=== PATIENT | male | born 1955 | race Caucasian/White ===

== ENCOUNTER 2017-11-10 10:40 | Outpatient (CLI) | payer OTHER | END 2017-11-10 10:41 | disposition home or self-care (01) | LOC: BICRAD 10:40 | PROVIDERS: ATTEND Family Medicine | DX: I48.2 Chronic atrial fibrillation (principal); I51.7 Cardiomegaly | CPT/HCPCS: 71046 ==

== ENCOUNTER 2017-12-11 22:23 | Inpatient (IN) | payer MEDICAID, OTHER ==
[2017-12-11] MEDS ORDERED: Albuterol Sulfate 2.5 mg/3 ml Neb ONE (22:51)
[2017-12-11 23:13] LABS: pH, Arterial 7.49 (7.35-7.45)
[2017-12-11] MEDS ORDERED: Furosemide 40 MG/4 ML VIAL ONE (23:13)
[2017-12-11] MEDS ORDERED: Dexamethasone 10 MG/ML VIAL ONE (23:13)
[2017-12-11 23:14] LABS: Actual Bicarbonate (HCO3a) 29.3 mEq/L (22-26); Base Excess (BEa) 5.5 mEq/L (0 (+/-) 2.5); CO2 Tension 39.3 mmHg (35.0-45.0); Carboxyhemoglobin (COHb) 2.1 gm% (0.0-3.0); Hematocrit-ABG 25.7 % (42.0-52.0); Hemoglobin (Hb) 5.9 g/dL (14.0-18.0); O2 Tension (PaO2) 69.9 mmHg (80.0-100.0)
[2017-12-11 23:15] LABS: Analyzer IN Cardio ER; Calcium, Ionized 1.1 mmol/L (1.12-1.30); Potassium - ABG Lab 3.3 mmol/L (3.70-5.30); Puncture Site RRA
[2017-12-11] MEDS ORDERED: Magnesium 2 GM/NS 0.9% 50 ML 2 GM in Premix Bag 1 BAG IVPB SCH (23:15)
[2017-12-11 23:16] LABS: ALV-art Gradient 166.175 (0-20)
--- NOTE | 2017-12-11 23:17 | RAD ---
PORTABLE AP CHEST X-RAY: 12/11/2017 HISTORY: Dyspnea. FINDINGS: The cardiac silhouette is magnified by projection. The pulmonary vasculature is within normal limits . The lungs are clear. The osseous structures appear intact. IMPRESSION: No acute cardiopulmonary process. POS: SUSHMAH
[2017-12-11 23:27] LABS: #Basophils 0.1 thou/uL (0.0-0.2); #Eosinphils 0.5 thou/uL (0.0-0.7); #Lymphocytes 1.5 thou/uL (1.20-3.40); #Monocytes 1.3 thou/uL (0.11-0.59); #Neutrophils 13.9 thou/uL (1.40-6.50); %Basophils 0.5 % (0.0-1.0); %Lymphocytes 8.8 % (21.0-51.0); %Monocytes 7.6 % (0.0-10.0); %Neutrophils 80.1 % (42.0-75.0); Hemoglobin 6.4 g/dL (14.0-18.0); Mean Corpuscular HGB CONC 30.5 g/dL (32.0-36.0); Mean Corpuscular Hemoglobin 23.3 pg (27.0-31.0); Mean Corpuscular Volume 76.4 fl (80.0-94.0); Mean Platelet Volume 7.1 fL (7.4-10.4); Platelet Count 747 thou/uL (130-400); RBC Distribution Width 20.8 % (11.5-14.5); Red Blood Cell (RBC) Count 2.73 mill/uL (4.70-6.10); White Blood Cell (WBC) Count 17.3 thou/uL (4.8-10.8)
[2017-12-11 23:39] LABS: ALT (SGPT) 24 U/L (8-55); AST (SGOT) 19 U/L (5-34); Albumin 3.7 g/dL (3.4-4.8); Alkaline Phosphatase 116 U/L (40-150); Anion Gap 14 mmol/L (10-20); BUN (Urea Nitrogen) 24 mg/dL (8.4-25.7); Bilirubin, Total 0.3 mg/dL (0.2-1.2); CK (CPK) 54 U/L (30-200); Calc. Creatinine Clearance 90 mL/min (70-130); Carbon Dioxide 28 mmol/L (23-31); Chloride 94 mmol/L (98-107); Estimated GFR-MDRD 55; Globulin 2.9 g/dL (2.4-3.5); Glucose 121 mg/dL (80-115); Lipase 52 U/L (8-78); Potassium 3.7 mmol/L (3.5-5.1); Protein, Total 6.6 g/dL (5.8-8.1); Sodium 132 mmol/L (136-145)
[2017-12-11 23:43] LABS: Troponin I 0.012 ng/mL (< 0.028)
[2017-12-11 23:44] LABS: Bilirubin Negative (Negative); Blood, Urine Negative (Negative); Clarity CLEAR (Clear); Glucose, Urine (Dipstick) Negative (Negative); Leukocyte Small (Negative); Nitrite Negative (Negative); Protein, Urine (Dipstick) Negative (Neg-Trace); Specific Gravity, Urine 1.022 (1.002-1.036); Urobilinogen 0.2 mg/dL (0.2-1.0); pH, Urine 5.5 (5.0-9.0)
[2017-12-11 23:48] LABS: Bacteria/HPF None Seen HPF (None Seen); Hyaline Casts/LPF 0-3 HYALINE CAST LPF (0-3 Hyaline); Pathc Cast-AUWi Flag 0.14 (0-2.49); RBC/HPF 0-3 HPF (0-3); Squamous Epithelial 0-3 HPF (0-3)
[2017-12-12] MEDS ORDERED: Ondansetron ODT 4 MG TAB SL PRN (02:00)
[2017-12-12] MEDS ORDERED: Ondansetron PF 4 MG/2 ML Vial IVP PRN (02:00)
[2017-12-12 02:34] VITALS: BMI 34.6
[2017-12-12 02:56] LABS: Troponin I 0.011 ng/mL (< 0.028)
[2017-12-12 05:29] LABS: #Basophils 0.1 thou/uL (0.0-0.2); #Eosinphils 0.2 thou/uL (0.0-0.7); #Lymphocytes 0.8 thou/uL (1.20-3.40); #Monocytes 0.6 thou/uL (0.11-0.59); #Neutrophils 16.8 thou/uL (1.40-6.50); %Basophils 0.3 % (0.0-1.0); %Lymphocytes 4.3 % (21.0-51.0); %Monocytes 3.1 % (0.0-10.0); %Neutrophils 91.4 % (42.0-75.0); Hemoglobin 7.1 g/dL (14.0-18.0); Mean Corpuscular HGB CONC 31.1 g/dL (32.0-36.0); Mean Corpuscular Hemoglobin 24.8 pg (27.0-31.0); Mean Corpuscular Volume 79.9 fl (80.0-94.0); Mean Platelet Volume 7.6 fL (7.4-10.4); Platelet Count 666 thou/uL (130-400); RBC Distribution Width 20.6 % (11.5-14.5); Red Blood Cell (RBC) Count 2.85 mill/uL (4.70-6.10); White Blood Cell (WBC) Count 18.4 thou/uL (4.8-10.8)
[2017-12-12 05:37] LABS: Anion Gap 18 mmol/L (10-20); BUN (Urea Nitrogen) 24 mg/dL (8.4-25.7); Calc. Creatinine Clearance 95 mL/min (70-130); Calcium 8.8 mg/dL (7.8-10.44); Carbon Dioxide 26 mmol/L (23-31); Chloride 93 mmol/L (98-107); Estimated GFR-MDRD 55; Glucose 187 mg/dL (80-115); Potassium 3.6 mmol/L (3.5-5.1); Sodium 133 mmol/L (136-145)
[2017-12-12 05:43] LABS: Troponin I Less than 0.010 ng/mL (< 0.028)
[2017-12-12] MEDS ORDERED: Morphine 4 MG/ML VIAL SLOW IVP PRN (05:48)
[2017-12-12] MEDS ORDERED: Acetaminophen 325 MG TAB PO PRN (05:49)
[2017-12-12] MEDS ORDERED: Furosemide 20 MG/2 ML VIAL SLOW IVP SCH (06:00)
[2017-12-12] MEDS ORDERED: Ferrous Sulfate 325 MG TAB PO SCH (09:00)
[2017-12-12] MEDS ORDERED: Famotidine/PF 20 mg/2ml Vial SLOW IVP SCH (09:00)
[2017-12-12] MEDS ORDERED: Dexamethasone 4 mg/ml Vial SLOW IVP SCH (09:00)
[2017-12-12] MEDS ORDERED: DILTIAZEM HCL 240 MG PO SCH (09:00)
[2017-12-12] MEDS ORDERED: Aspirin 325 MG TAB PO SCH (09:00)
[2017-12-12] MEDS ORDERED: Non-Formulary Item 1 EACH (Ferrous Sulfate [Ferrous Sulfate] 325 MG) PO SCH (09:00)
--- NOTE | 2017-12-12 09:21 | HP ---
HISTORY OF PRESENT ILLNESS: This is a 62-year-old white male with COPD and CHF who presents with tereso rtness of breath. The patient has a long history of tobacco use leading to chronic obstructive pulmo nary disease as well as cardiac issues. He has had multiple admissions for congestive heart failure. He has been a longtime patient of [facility] in [place]. He lives in [place]. Recently his ins urance changed and [facility] no longer takes his insurance. He recently came to see me 1 month ago because I took his insurance; however, no specialist in town takes his insurance. He presently is scheduled for a Cardiology evaluation in [place]. The patient is in [place] due to his da ughter being here and wanting him to move here. However, the patient wants to live in [place]. The p atient states he has never had a cardiac catheterization. He has had multiple hospital admissions. Recently he was hospitalized at [facility] weeks ago for 5 days. He was seen there for a GI b leed. He had an EGD and colonoscopy which revealed only ulcers in his stomach. He has never had lexie ght red bleeding. He was noted to have a low hemoglobin and received multiple units of packed red bl ood cells. He presents to [facility] last night because of increasing shortness of breath and wea kness, unable to walk more than a few steps. He did not have any chest pain. Since being admitted h e states that the swelling that has been in his hands and feet have gone down. The swelling in his h ands is nearly resolved, but his legs are still quite swollen. He has had no further chest pain. Hi s breathing has improved. He is being admitted for further evaluation. He continues to take aspirin 81 and Xarelto 20 daily due to his atrial fibrillation. PAST MEDICAL HISTORY: 1. Congestive heart failure with ejection fraction of 45-49% noted in 10/2017. 2. Atrial fibrillation. 3. Testicular cancer 2005. 4. Hypertension 5. Hyperlipidemia. 6. Chronic COPD. PAST SURGICAL HISTORY: Include orchiectomy in 2005. FAMILY HISTORY: Father with diabetes, hypertension. Mother with hypertension, stroke. Siblings wit h diabetes. Grandparents have all . SOCIAL HISTORY: The patient has a 40-year tobacco history, quit in 2008. Drinks occasional alcohol and coffee. 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 He is divor yoly. He has 3 daughters and 2 grandkids. MEDICATIONS: Zyrtec 10 mg daily, iron 325 daily, KCl 10 daily, Lasix 40 b.i.d., Lipitor 10 mg daily, aspirin 81 mg daily, Protonix 40 daily, diltiazem 240 mg daily. ALLERGIES: AMOXICILLIN. PHYSICAL EXAMINATION: VITAL SIGNS: Temperature 98.8, pulse 124, respirations 18, pulse ox 95, blood pressure 106/73. GENERAL: The patient is eating breakfast, appears in no acute distress at this time. HEENT: Clear. HEART: Irregular. LUNGS: Clear. ABDOMEN: Soft, nontender, obese. EXTREMITIES: With 3+ edema. REVIEW OF SYSTEMS: As above. LABORATORY: White count 18.4, H&H 7.1 and 22.8, platelet of 666. Sodium 133, potassium 3.6, creatin ine 1.32, BUN 24, GFR 55, glucose 187. Troponin less than 0.010. BNP 400. Chest x-ray; no acute di sease. ASSESSMENT: 1. Acute on chronic congestive heart failure. 2. Chronic atrial fibrillation. 3. Chronic obstructive pulmonary disease exacerbation. 4. History of testicular cancer. 5. Gastrointestinal bleed. 6. On Xarelto and aspirin for chronic atrial fibrillation. 7. Hypertension. 8. Hyperlipidemia. 9. Peptic ulcer disease. PLAN: 1. The patient has multiple issues. The primary issue is that he does not have physicians caring fo r him in one location. He is having difficulty seeking medical care. 2. He is severely anemic and will require serial hemoglobin monitoring. He may need additional pack ed red blood cells. 3. We will consult GI. 4. We will consult Cardiology. It is hard to believe he has never had a cardiac catheterization. 5. Consult Pulmonary. Overall, his main issue most likely is cardiac in nature. 6. Repeat echocardiogram. 7. I's and O's. 8. Increase Lasix IV 40 b.i.d. 9. Continue iron. 10. Continue to monitor CBC and comprehensive. 11. Protonix 40 b.i.d.
[2017-12-12] MEDS: Famotidine 20 MG TAB PO SCH ×2 (09:30→20:59)
[2017-12-12] MEDS: Atorvastatin Calcium 10 MG TAB PO SCH (09:30)
--- NOTE | 2017-12-12 15:35 | CON ---
DATE OF CONSULTATION: 12/12/2017 HISTORY OF PRESENT ILLNESS: Mr. Gipson is a very pleasant 62-year-old male. He lives in the [facility]. He changed the insurance plans, which requires him to drive down here for care. He has seen Dr. Reid Cruz now. He is actually quite happy with his care, but not happy with the driving. SOCIAL HISTORY: He is a former smoker. Approximately 15 years ago, he was told he had COPD based on breathing test done at [facility], but he says he was actively smoking when they did the pulmonary function test. He quit smoking, said when he quit smoking, his breathing improved and he has not been taking breathing medicines since then. He was here with volume overload. He says he is feeling much better. Apparently, was recently hospitalized for GI bleed, which was felt to be secondary to ulcers in his stomach. PAST MEDICAL HISTORY: Remarkable for atrial fibrillation and cardiomyopathy, testicular cancer, hypertension, lipid disorder, orchiectomy and reportedly obstructive lung disease. He is not smoking or drinking. He has children that live in this area, so he does come down to see them. FAMILY HISTORY: Positive for diabetes, hypertension and stroke. MEDICATIONS PRIOR TO ADMISSION: Zyrtec, iron, potassium, Lasix, Lipitor, aspirin, Protonix and Cardizem. ALLERGIES: Reports allergies to PENICILLIN. REVIEW OF SYSTEMS: Ten-point review of systems otherwise negative. PHYSICAL EXAMINATION: GENERAL: Patient does not drink or smoke. VITAL SIGNS: Afebrile, heart rate is 73, respiratory 20, oximetry is 98% on room air and blood pressure 108/71. HEENT: Pupils are equal. Sclerae is anicteric. NECK: Supple. No lymphadenopathy. LUNGS: Clear. HEART: Regular rhythm. S1 and S2 are normal. ABDOMEN: Soft and nontender. EXTREMITIES: Without clubbing, cyanosis or edema. He has 2+ pitting edema in his pretibial area. IMAGING DATA: He says he has never had a sleep study. IMPRESSION AND PLAN: Volume overload. It is unclear how much of this is related to lung disease, sleep apnea or his cardiomyopathy. It would not be unreasonable to do PFTs at the bedside while he is here. I will be happy to follow along with the other physicians caring for him. This is a 70-minute consult. Greater than 50% of the time was spent coordinating care on the unit. MARIA EUGENIA
[2017-12-12] MEDS ORDERED: Digoxin 0.5 MG/2 ML AMP SLOW IVP SCH (17:30)
[2017-12-12] MEDS: Bisacodyl 5 MG TAB PO PRN (17:49)
[2017-12-12] MEDS: Furosemide 40 MG/4 ML VIAL SLOW IVP SCH (17:49)
--- NOTE | 2017-12-12 21:12 | CON ---
DATE OF CONSULTATION: 12/12/2017 HISTORY OF PRESENT ILLNESS: Keaton Gipson is a 62-year-old white male from [place], who 2 months ago was diagnosed as having atrial fibrillation in [place] when he was hospitalized at [facility]. He was told that his ejection fraction was 45%-49%. He also underwent some type of nuclear study and apparently this was normal. It was elected to have him anticoagulated and rate control alone. Due to change in insurance 1 month ago, he came to see Dr. Reid Cruz. He then was hospitalized 2 weeks ago at [facility] for 5 days with gastrointestinal bleeding. Apparently, EGD and colonoscopy revealed only ulcers in his stomach and he was placed on Protonix. His Xarelto was restarted. He also received several units of RBCs during that hospitalization. He now presents to [facility] complaining of increased shortness of breath, weakness, and difficulty walking more than a few steps due to shortness of breath. He denies any chest, arm, neck, or jaw discomfort. PAST MEDICAL HISTORY: Atrial fibrillation for approximately 2 months, history of testicular cancer in 2005, hypertension, hyperlipidemia, COPD. OPERATIONS: Orchiectomy in 2005. MEDICATIONS: Zyrtec 10 daily, iron 325 daily, KCl 10 daily, Lasix 40 b.i.d., Lipitor 5 daily, aspirin 81 daily, Protonix 40 daily, diltiazem 240 daily. ALLERGIES: AMOXICILLIN. SOCIAL HISTORY: He quit smoking in 2008, but did smoke approximately 1 pack per day. He has occasional alcohol. 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 REVIEW OF SYSTEMS: 10-point review of systems is otherwise unremarkable. PHYSICAL EXAMINATION: VITAL SIGNS: Blood pressure 119/79, pulse of 99, although at times his pulse rate will get up into the 120s to 130s. HEENT: PERRL. NECK: Supple. CHEST: Clear. CARDIAC: S1 and S2 are normal without any S3, S4, or murmurs. ABDOMEN: Obese. EXTREMITIES: Revealed 3 to 4+ edema to the hips. NEUROLOGIC: Grossly intact. SKIN: Warm and dry. LABORATORY DATA: EKG revealed atrial fibrillation with fast ventricular response with a rate of 115 per minute. Another EKG of 138 per minute. Hemoglobin 6.4 on admission, now 7.1; hematocrit 22.8; white count 18,400. Sodium 133, potassium 3.6, chloride 93, carbon dioxide 26, BUN 24, creatinine 1.32. Cardiac enzymes were unremarkable. BNP is 400.7. IMPRESSION: 1. Anemia, probably secondary to gastrointestinal bleeding. 2. Probable normal nuclear scan in [place] at [facility]. 3. Congestive heart failure with only mild systolic dysfunction previously, so I imagine there is a large component of diastolic dysfunction with his atrial fibrillation. 4. Atrial fibrillation, 2 months, rate poorly controlled. 5. Hypertension. 6. Hyperlipidemia. 7. Obesity. 8. Former smoker. 9. Chronic obstructive pulmonary disease. PLAN: Xarelto and aspirin needed to be withheld. He certainly may require transfusion. He will be treated with intravenous Lasix 40 mg b.i.d. Diltiazem will be discontinued. Instead he will be placed on carvedilol and digoxin 0.5 mg IV will be given for better rate control. He did have apparently gastric ulcers with an endoscopy in [place] and his Protonix b.i.d. will be continued. MTDD
[2017-12-12] MEDS: traMADol HCl 50 MG TAB PO PRN (23:29)
[2017-12-13 05:28] LABS: ALT (SGPT) 21 U/L (8-55); AST (SGOT) 14 U/L (5-34); Albumin 3.8 g/dL (3.4-4.8); Alkaline Phosphatase 108 U/L (40-150); Anion Gap 11 mmol/L (10-20); BUN (Urea Nitrogen) 29 mg/dL (8.4-25.7); Bilirubin, Total 0.3 mg/dL (0.2-1.2); Calc. Creatinine Clearance 118 mL/min (70-130); Calcium 9.2 mg/dL (7.8-10.44); Carbon Dioxide 32 mmol/L (23-31); Cardiac Risk 4.3 (Less than 4.5); Chloride 93 mmol/L (98-107); Cholesterol 116 mg/dl (< 200 Desired); Estimated GFR-MDRD 71; Glucose 175 mg/dL (80-115); HDL Cholesterol 27 mg/dL (>60 Neg Risk); LDL Cholesterol, Calculated 73 mg/dL; Potassium 4.4 mmol/L (3.5-5.1); Protein, Total 6.8 g/dL (5.8-8.1); Sodium 132 mmol/L (136-145); Triglycerides 81 mg/dL (Less than 150)
[2017-12-13] MEDS: Furosemide 40 MG/4 ML VIAL SLOW IVP SCH ×2 (05:51→18:05)
[2017-12-13 05:54] LABS: Band 2 % (5-11); Hemoglobin 7.1 g/dL (14.0-18.0); Hypochromia SLIGHT = 6-15 cells (100X) (0-5/hpf); Lymphocytes 9 % (21-51); MDiff Complete? YES; Mean Corpuscular HGB CONC 30.7 g/dL (32.0-36.0); Mean Corpuscular Hemoglobin 24.1 pg (27.0-31.0); Mean Corpuscular Volume 78.7 fl (80.0-94.0); Mean Platelet Volume 7.5 fL (7.4-10.4); Monocytes 16 % (0-10); Neutrophil 72 % (42-75); PLT Morphology Comment Appears Increased; Platelet Count 668 thou/uL (130-400); Polychromasia SLIGHT = 2-3 cells (100X) (0-2/hpf); RBC Distribution Width 21.2 % (11.5-14.5); Reactive Lymphocytes 1 % (0-10); Red Blood Cell (RBC) Count 2.96 mill/uL (4.70-6.10); White Blood Cell (WBC) Count 21.1 thou/uL (4.8-10.8)
[2017-12-13] MEDS ORDERED: Dextrose 5% in Water 1,000 ML IV PRN (07:41)
[2017-12-13] MEDS ORDERED: Dextrose 50% Abboject 50 ML SYRINGE SLOW IVP PRN (07:41)
--- NOTE | 2017-12-13 07:54 | PRG ---
DATE OF SERVICE: 12/13/2017 SUBJECTIVE: The patient is feeling much better. His leg swelling is decreasing slowly. No complain ts of any chest pain or shortness of breath. He has a good appetite. SUBJECTIVE: VITAL SIGNS: Temperature 97.0, pulse 116, respirations 16, pulse ox 100%, blood pressure 124/83. HEART: Irregular and slightly tachycardic. LUNGS: Clear. ABDOMEN: Soft. EXTREMITIES: With 2-3+ edema. I's and negative 1270 over the past 24 hours. LABORATORY: White count 21,000, H&H 7.1 and 23.3. Sodium 132, potassium 4.4, creatinine 1.06, BUN 2 9, blood sugar 187 and 175. ASSESSMENT: 1. Acute on chronic congestive heart failure. 2. Chronic atrial fibrillation. 3. Chronic obstructive pulmonary disease exacerbation. 4. History of testicular cancer. 5. Gastrointestinal bleed secondary to Xarelto and aspirin. 6. Hypertension. 7. Hyperlipidemia. 8. Peptic ulcer disease. PLAN: 1. The patient is feeling much better. Will need further diuresis. Leg edema, improving. 2. Anemic. I just put in the GI consult. He most likely needs further transfusions of packed red b lood cells. 3. Echocardiogram pending. 4. We will continue to follow. 5. We will try to get all of the [facility] records from his last admission.
[2017-12-13] MEDS ORDERED: Carvedilol 3.125 MG TAB PO SCH (08:00)
[2017-12-13] MEDS: Digoxin 0.125 MG TAB PO SCH (08:15)
[2017-12-13] MEDS: Atorvastatin Calcium 10 MG TAB PO SCH (08:16)
[2017-12-13] MEDS: Ferrous Sulfate 325 MG TAB PO SCH ×2 (08:16→18:04)
[2017-12-13] MEDS ORDERED: Digoxin 0.5 MG/2 ML AMP SLOW IVP SCH (09:45)
[2017-12-13] MEDS: Carvedilol 3.125 MG TAB PO SCH ×2 (14:18→20:57)
--- NOTE | 2017-12-13 16:28 | PRG ---
DATE OF SERVICE: 12/13/2017 SUBJECTIVE: Mr. Gipson in no distress. OBJECTIVE: VITAL SIGNS: He is afebrile, heart rate is 90, respiratory rate 17, oximetry is 96 on room air, bloo d pressure 137/84. GENERAL: He is actually end expiratory wheezes today. HEART: Regular rhythm. ABDOMEN: Soft. EXTREMITIES: Without asymmetry. LABORATORY DATA: White count 21.1, hemoglobin 7.1, and platelets 668. Sodium 132, potassium 4.4, chloride 93, bicarbonate 32, BUN 20, and creatinine 1.06. IMPRESSION: 1. ? chronic obstructive pulmonary disease. 2. Chronic atrial fibrillation. 3. Gastrointestinal blood loss with reactive thrombocytosis, most likely. 4. History of hypertension. 5. History of testicular cancer. 6. History of a small systolic cardiomyopathy and diastolic dysfunction. 7. Past tobacco not known for many years. PLAN: Transfusion as needed, supportive care. Given that he is mildly bronchospastic today might do well with some [place].
[2017-12-13] MEDS: Insulin Regular 300 UNITS/3 ML VIAL SC PRN (18:05)
[2017-12-13] MEDS: Bisacodyl 5 MG TAB PO PRN (18:08)
[2017-12-13] MEDS: Arformoterol 15 MCG/2 ML NEB NEB SCH (18:21)
[2017-12-13] MEDS: traMADol HCl 50 MG TAB PO PRN (20:54)
[2017-12-14 04:07] LABS: #Lymphocytes 1.3 thou/uL (1.20-3.40); #Monocytes 1.5 thou/uL (0.11-0.59); #Neutrophils 13.5 thou/uL (1.40-6.50); %Eosinophils 0.2 % (0.0-10.0); %Lymphocytes 7.8 % (21.0-51.0); %Monocytes 9.1 % (0.0-10.0); Hemoglobin 7.1 g/dL (14.0-18.0); Mean Corpuscular HGB CONC 30.9 g/dL (32.0-36.0); Mean Corpuscular Hemoglobin 24.6 pg (27.0-31.0); Mean Corpuscular Volume 79.5 fl (80.0-94.0); Mean Platelet Volume 7.2 fL (7.4-10.4); Platelet Count 537 thou/uL (130-400); RBC Distribution Width 20.6 % (11.5-14.5); Red Blood Cell (RBC) Count 2.91 mill/uL (4.70-6.10); White Blood Cell (WBC) Count 16.3 thou/uL (4.8-10.8)
[2017-12-14 04:19] LABS: Digoxin 0.95 ng/mL (0.8-2.0)
[2017-12-14 04:20] LABS: Anion Gap 10 mmol/L (10-20); BUN (Urea Nitrogen) 28 mg/dL (8.4-25.7); Calc. Creatinine Clearance 123 mL/min (70-130); Calcium 8.8 mg/dL (7.8-10.44); Carbon Dioxide 32 mmol/L (23-31); Chloride 98 mmol/L (98-107); Estimated GFR-MDRD 74; Glucose 141 mg/dL (80-115); Potassium 4.3 mmol/L (3.5-5.1); Sodium 136 mmol/L (136-145)
--- NOTE | 2017-12-14 06:00 | CON ---
DATE OF CONSULTATION: 12/13/2017 REASON FOR CONSULTATION: Anemia, history of gastric ulcer. CONSULTING PHYSICIAN: Dr. Reid Cruz. HISTORY OF PRESENT ILLNESS: The patient is a 62-year-old male with past medical history of COPD; hyp erlipidemia; hypertension; testicular cancer, status post orchiectomy; congestive heart failure with an EF of 45-49%; and recent diagnosis of atrial fibrillation on anticoagulation, presenting with comp laints of shortness of breath, weakness. He states that he was in his usual state of health until ap proximately a month ago when he experienced increased shortness of breath and weakness. He was subse quently seen at [facility] in the [place], [place] and diagnosed with atrial fibrillation. He was subsequently placed on Xarelto at that time as part of anticoagulation as part of that conditi on. Since that time, he started having maroon/black stools, having approximately 1-2 solid to semi-s olid bowel movements per day with no special maneuvers in order to defecate with progressively worsen ing of his shortness of breath and weakness. He was ultimately admitted to [facility] in [facility] where he underwent both an upper endoscopy and colonoscopy. During t he upper endoscopy, he was noted to have a gastric ulcer that could potentially cause his decreased H and H and darker colored stools. However, review of this operative report was not available at the time of this consultation with any intervention done unknown at this time. Since being discharged fr [facility] approximately 2 weeks ago, he has had no further episodes of these darker/b lack colored stools; however, he does continue to have increased shortness of breath and weakness and was noted to have a decreased H and H on admission to [facility]. Currently, denies any na usea, vomiting, fevers, chills, abdominal pain, dysphagia, odynophagia, diarrhea, or constipation. H e also denies any NSAID use as an outpatient. REVIEW OF SYSTEMS: A 10-point review category review of systems was obtained with all responses nega tive except for the pertinent positives as listed in the HPI. PAST MEDICAL HISTORY: As per HPI. PAST SURGICAL HISTORY: Orchiectomy in 2006. FAMILY HISTORY: Denies any GI malignancies. SOCIAL HISTORY: Denies any tobacco or illicit drug use. Does drink occasional alcohol and coffee. OUTPATIENT MEDICATIONS: Reviewed. ALLERGIES: AMOXICILLIN. PHYSICAL EXAMINATION: VITAL SIGNS: Temperature of 98.1, pulse 96, blood pressure 122/69, respiratory rate 18, satting 99% on room air. GENERAL: The patient sitting at bedside, in no acute distress. He is alert and oriented x4. NECK: Supple. No JVD noted. CARDIOVASCULAR: Irregularly irregular rhythm with no discernible wheezes heard, gallops, or rubs. RESPIRATORY: Clear to auscultation bilaterally with no discernible wheezes or rales. ABDOMEN: Normoactive bowel sounds, soft, nontender, nondistended. EXTREMITIES: No cyanosis or clubbing; however, 2+ bilateral lower extremity edema was noted in the b ilateral lower extremities and extending to mid thigh. LABORATORY DATA: CBC with a white blood cell count of 21.1, hemoglobin 7.1, hematocrit 23.3, platele ts 668. Chemistry with a sodium of 132, potassium 4.4, chloride 93, CO2 of 32, BUN 29, creatinine 1. 06, glucose 175, AST 14, ALT 21, alkaline phosphatase 108, total bilirubin 0.3. IMAGING DATA: Chest x-ray obtained on 12/11/2017 did not show any acute cardiopulmonary process. ASSESSMENT AND PLAN: The patient is a 62-year-old male with past medical history of COPD, hyperlipid emia, hypertension, testicular cancer, CHF, atrial fibrillation on anticoagulation, and recent diagno sis of gastric ulcer, presenting with symptomatic anemia. Symptomatic anemia: The patient is presenting with a recent diagnosis of atrial fibrillation approxi mately 1.5 months ago and was subsequently placed on Xarelto as anticoagulation as part of this condi tion. After being placed on the Xarelto, he stated that he was having increased occurrence of maroon /black colored stools as well as progressive worsening of his shortness of breath and weakness. He w as evaluated at [facility] approximately 2 weeks ago where both an upper and low er endoscopy were performed with the findings of gastric ulcer seen during those examinations (no fin dings were noted on the colonoscopy); however, since discharge from [facility]. He has c ontinued to have increased shortness of breath and weakness with decreased H and H on admission now. At this time, it is unclear as to what his baseline H and H and what it was when he was discharged f rom the hospital approximately 2 weeks ago, but given that his symptoms continue a subsequent GI blee d is within the differential, especially with the findings of a GI ulceration approximately 2 weeks a go. RECOMMENDATIONS: 1. We would continue to trend H and H and transfuse as necessary to maintain an H and H of 7/. 2. We would continue to monitor clinically for signs of active GI bleeding. 3. Please make the patient n.p.o. at midnight for EGD tomorrow in evaluation of possible gastric ulc er contributing to further anemia. 4. We would hold any anticoagulation for now in light of active GI bleeding. We will continue to follow. Please call with any questions.
[2017-12-14] MEDS: Furosemide 40 MG/4 ML VIAL SLOW IVP SCH ×2 (06:12→16:43)
[2017-12-14] MEDS: Carvedilol 3.125 MG TAB PO SCH (06:12)
--- NOTE | 2017-12-14 08:03 | PRG ---
DATE OF SERVICE: 12/14/2017 SUBJECTIVE: The patient is feeling much better this morning. He did diurese over 3 liters of fluids yesterday. This morning, he is scheduled for an EGD. He states he is breathing easier and his legs are much less painful and the swelling has gone down significantly. OBJECTIVE: VITAL SIGNS: Temperature 98.1, pulse 97, respirations 18, pulse ox 99 on room air, blood pressure 11 3/88. HEART: Irregular, irregular, rate controlled. LUNGS: Clear. No wheezing. ABDOMEN: Soft, obese. EXTREMITIES: 1 to 2+ edema. LABORATORY DATA: White count 16.3, H&H is 7.1 and 23.1. Sodium 136, potassium 4.3, CO2 32, creatini ne 1.02, BUN 28, blood sugar 141 to 159. ASSESSMENT: 1. Acute on chronic congestive heart failure with systolic/diastolic dysfunction. 2. Chronic atrial fibrillation. 3. Chronic obstructive pulmonary disease exacerbation, improved. 4. Gastrointestinal bleeding secondary to gastric ulcer on Xarelto and Aspirin. 5. History of testicular cancer status post orchiectomy. 6. Hypertension. 7. Hyperlipidemia. PLAN: 1. The patient has diuresed significantly, three liters over the past 24 hours and 600 mL of urine i n the [place] this a.m. We will need to continue to diurese as much as possible. Kidney functions rem ain stable. Leg edema has markedly improved. 2. Anemia, stable. We will continue to follow. 3. Schedule for EGD this morning. 4. We will continue to follow diuresis.
[2017-12-14] MEDS: Arformoterol 15 MCG/2 ML NEB NEB SCH ×2 (08:27→19:24)
[2017-12-14] MEDS ORDERED: PROPOFOL 200 MG/20 ML VIAL ONE (15:22)
[2017-12-14] MEDS ORDERED: Fentanyl 100 MCG/2 ML VIAL ONE (15:35)
[2017-12-14] MEDS: Ferrous Sulfate 325 MG TAB PO SCH ×2 (16:42→16:56)
[2017-12-14] MEDS: Atorvastatin Calcium 10 MG TAB PO SCH (16:42)
[2017-12-14] MEDS: Digoxin 0.125 MG TAB PO SCH (16:43)
[2017-12-14] MEDS: Carvedilol 6.25 MG TAB PO SCH (16:43)
--- NOTE | 2017-12-14 18:55 | OP ---
DATE OF PROCEDURE: 12/14/2017 GI ENDOSCOPY NOTE SURGEON: Reid Strange M.D. TIP FIXER SURGEON: None. PROCEDURE: Esophagogastroduodenoscopy, diagnostic. INDICATIONS: 1. Anemia. 2. Recent history of peptic ulcer disease. MEDICATIONS: See anesthesia record. FINDINGS: After discussion of the risks, benefits and alternatives of the procedure, informed consen t was obtained and witnessed. Pre-endoscopic cardiopulmonary examination was satisfactory. Timeout was performed before sedation was achieved. Sedation was achieved with anesthesia assistance in the endoscopy unit. A Pentax adult upper endoscope was placed into the oropharynx and passed through the cricopharyngeus under direct visualization. The esophageal mucosa appeared normal throughout with a normal-appearing Z-line. There was no evidence of any esophageal varices. The endoscope was advanc ed into the stomach. Forward and retroflexed views of the entire gastric mucosa were obtained. Ther e was no evidence of any old blood or active bleeding. There were no erosions or ulcerations noted i n the gastric mucosa. There was some mild antral erythema. The endoscope was passed through the pyl orus and into the first and second portions of the duodenum which appeared normal. The upper endosco pe was then completely withdrawn and the patient allowed to recover. The patient tolerated the proce dure well. There were no immediate post-procedure complications. IMPRESSION: 1. Mild nonerosive antral gastritis. 2. No erosions or ulcerations visualized. 3. Otherwise, normal esophagogastroduodenoscopy. RECOMMENDATIONS: 1. Advance diet. 2. Continue daily PPI. GI will sign off. Please call back with any questions or concerns.
[2017-12-14] MEDS: traMADol HCl 50 MG TAB PO PRN (23:00)
[2017-12-15] MEDS: Furosemide 40 MG/4 ML VIAL SLOW IVP SCH ×2 (05:36→17:26)
[2017-12-15 08:02] LABS: Anion Gap 15 mmol/L (10-20); BUN (Urea Nitrogen) 26 mg/dL (8.4-25.7); Calc. Creatinine Clearance 99 mL/min (70-130); Calcium 8.8 mg/dL (7.8-10.44); Carbon Dioxide 28 mmol/L (23-31); Chloride 99 mmol/L (98-107); Estimated GFR-MDRD 60; Glucose 107 mg/dL (80-115); Potassium 3.8 mmol/L (3.5-5.1); Sodium 138 mmol/L (136-145)
[2017-12-15 08:38] LABS: Hemoglobin 7.7 g/dL (14.0-18.0); Mean Corpuscular HGB CONC 29.6 g/dL (32.0-36.0); Mean Corpuscular Volume 81.2 fl (80.0-94.0); Mean Platelet Volume 7.8 fL (7.4-10.4); Platelet Count 582 thou/uL (130-400); RBC Distribution Width 20.5 % (11.5-14.5); Red Blood Cell (RBC) Count 3.22 mill/uL (4.70-6.10); White Blood Cell (WBC) Count 13.6 thou/uL (4.8-10.8)
[2017-12-15 09:25] LABS: Anisocytosis MODERATE=16-30 cells (100X) (0-5/hpf); Band 7 % (5-11); Eosinophils 1 % (0-10); Hypochromia MODERATE=16-30 cells (100X) (0-5/hpf); Lymphocytes 20 % (21-51); MDiff Complete? YES; Monocytes 8 % (0-10); Neutrophil 64 % (42-75); Polychromasia MODERATE = 3-4 cells (100X) (0-2/hpf)
[2017-12-15] MEDS: Atorvastatin Calcium 10 MG TAB PO SCH (09:25)
[2017-12-15] MEDS: Carvedilol 6.25 MG TAB PO SCH ×2 (09:25→19:55)
[2017-12-15] MEDS: Digoxin 0.125 MG TAB PO SCH (09:25)
[2017-12-15] MEDS: Ferrous Sulfate 325 MG TAB PO SCH ×2 (09:25→17:26)
--- NOTE | 2017-12-15 10:24 | PRG ---
DATE OF SERVICE: 12/15/2017 SUBJECTIVE: The patient is doing excellent. He continues to diurese. His legs are becoming less pa inful. No issues with breathing. OBJECTIVE: VITAL SIGNS: Temperature 98.2, pulse 115, pulse ox 100, respiratory rate 19, blood pressure 124/60. HEART: Regular rate and rhythm. LUNGS: Clear. ABDOMEN: Soft. EXTREMITIES: With 1-2+ edema. I's and O's are negative 2260 from the past 24 hours with 800 output at this time. Clear urine. LABORATORY DATA: White count 16. Electrolytes normal. Creatinine 1.22, BUN 26. ASSESSMENT: 1. Postop day #1, status post esophagogastroduodenoscopy showing acute gastritis. 2. Acute on chronic congestive heart failure with systolic/diastolic dysfunction. 3. Chronic atrial fibrillation. 4. Chronic obstructive pulmonary disease exacerbation, improved. 5. Gastrointestinal bleed secondary to Xarelto and aspirin, which are on hold. 6. History of testicular cancer status post orchiectomy. 7. Hypertension. 8. Hyperlipidemia. PLAN: 1. Continue diuresis. 2. Transfer to telemetry. 3. Continue to follow.
--- NOTE | 2017-12-15 11:02 | PRG ---
DATE OF SERVICE: 12/15/2017 Mr. Gipson is afebrile, heart rate is 115, blood pressure 124/60, respiratory rate 19, oximetry 100% o n room air. LUNGS: He has end expiratory wheezes bilaterally that are extremely mild. CARDIOVASCULAR: Regular rhythm. ABDOMEN: Soft. EXTREMITIES: With improving edema. LABORATORY: White count 13.6, hemoglobin 7.7, platelets 582,000. Electrolytes are normal. BUN is 2 6, creatinine is 1.2. Intake and output is negative 2260. He is negative 6-1/2 liters over the last 4 days. IMPRESSION: 1. Volume overload. 2.? Chronic obstructive pulmonary disease versus chronic persistent asthma. Once he is clinically stable from a heart standpoint and a volume standpoint, it would be appropriate to do full pulmonary function tests. I do not think those will really add a whole lot to his manage ment at this point in time, but once he is ambulatory and out of the hospital 4-6 weeks, then full PF Ts might be helpful sorting through whether or not he has asthma or chronic obstructive pulmonary dis ease. It is really not an issue at this point. Continue current care since he is improving on a daily basis.
[2017-12-15] MEDS: Arformoterol 15 MCG/2 ML NEB NEB SCH ×2 (13:45→18:34)
--- NOTE | 2017-12-15 16:09 | PFT ---
PATIENT HISTORY: HEIGHT: 72 WEIGHT:255 SMOKER: YES HOW LON PK YRS PACKS PER DAY 1 PRODUCTIVE COUGH: LUNG DISEASE: PHYSICIAN INTERPRETATION FINAL REPORT: Animal Husbandry Professor comments: patient was inpatient during this study. Clinical correlation is recommended FEV1, 11.91 (50%), FVC 2.78 (55%), FEV1/FVC 0.69. There is a symmetric reduction to both the FEV1 and the FVC. There is absolutely no suggestion of obstructive airflow limitation on the expiratory limb of the flow volume loop. Inspiratory limb is roughly normal. IMPRESSION: The spirometry is suggestive of moderately severe restrictive ventilatory impairment. Clinical and radiographic correlation should be considered. Lung volumes would help to confirm the volume restriction. Diffusion capacity may help to interpret these data. Animal Husbandry Professor: VIVIENNE Linoleum Layer: VIVIENNE DEL CID
[2017-12-15] MEDS: traMADol HCl 50 MG TAB PO PRN (19:54)
[2017-12-15] MEDS: Bisacodyl 5 MG TAB PO PRN (20:02)
[2017-12-15] MEDS ORDERED: Diltiazem 125 MG in Sodium Chloride 0.9% 100 ML IVPB SCH (22:00)
[2017-12-16] MEDS: Furosemide 40 MG/4 ML VIAL SLOW IVP SCH ×2 (05:50→17:56)
[2017-12-16 05:57] LABS: Anisocytosis SLIGHT = 6-15 cells (100X) (0-5/hpf); Hemoglobin 7.3 g/dL (14.0-18.0); Lymphocytes 16 % (21-51); MDiff Complete? YES; Mean Corpuscular HGB CONC 30.1 g/dL (32.0-36.0); Mean Corpuscular Hemoglobin 24.5 pg (27.0-31.0); Mean Corpuscular Volume 81.6 fl (80.0-94.0); Mean Platelet Volume 8.1 fL (7.4-10.4); Monocytes 10 % (0-10); Neutrophil 74 % (42-75); Platelet Count 397 thou/uL (130-400); Polychromasia SLIGHT = 2-3 cells (100X) (0-2/hpf); RBC Distribution Width 20.8 % (11.5-14.5); Red Blood Cell (RBC) Count 2.96 mill/uL (4.70-6.10); White Blood Cell (WBC) Count 11.2 thou/uL (4.8-10.8)
[2017-12-16 05:58] LABS: Anion Gap 11 mmol/L (10-20); BUN (Urea Nitrogen) 20 mg/dL (8.4-25.7); Calc. Creatinine Clearance 131 mL/min (70-130); Calcium 8.6 mg/dL (7.8-10.44); Carbon Dioxide 29 mmol/L (23-31); Chloride 100 mmol/L (98-107); Estimated GFR-MDRD 83; Glucose 99 mg/dL (80-115); Potassium 3.6 mmol/L (3.5-5.1); Sodium 136 mmol/L (136-145)
[2017-12-16] MEDS: Arformoterol 15 MCG/2 ML NEB NEB SCH ×2 (06:19→18:32)
--- NOTE | 2017-12-16 08:18 | PRG ---
DATE OF SERVICE: 12/16/2017 SUBJECTIVE: The patient continues to do well. No complaints of chest pain, shortness of breath. De siring to ambulate more. OBJECTIVE: VITAL SIGNS: Temperature 97.5, pulse 93, respirations 16, pulse ox 95 on room air, blood pressure 14 7/76. HEART: Irregular, irregular, rate controlled. LUNGS: Clear. ABDOMEN: Soft. EXTREMITIES: With 1-2+ edema. I's and O's negative 3310 urine output. ASSESSMENT: 1. Postop day #2 status post EGD showing acute gastritis. 2. Acute on chronic congestive heart failure with systolic/diastolic dysfunction. 3. Chronic atrial fibrillation. 4. Chronic obstructive pulmonary disease exacerbation. 5. Gastrointestinal bleed secondary to Xarelto and aspirin, which are on hold. 6. History of testicular cancer status post orchiectomy. 7. Hypertension. 8. Hyperlipidemia. PLAN: 1. The patient diuresed 3 liters last night. He presently has over 2 liters of urine in his Moreno. His swelling has gone down significantly. He is nearing time of discharge. However, he is diuresin g such so significantly I think we need to keep him for another day or two. 2. Will try to ambulate the patient more in the basilio. 3. We need to reevaluate the patient's anticoagulation status. Need to consider adding either a bab y aspirin to his regimen. We will leave this up to Cardiology. 4. The patient remains anemic. Hopefully, this will start to rise. He is on iron b.i.d. 5. We will continue to follow.
[2017-12-16] MEDS: Ferrous Sulfate 325 MG TAB PO SCH ×2 (08:20→16:47)
[2017-12-16] MEDS: Atorvastatin Calcium 10 MG TAB PO SCH (08:21)
[2017-12-16] MEDS: Carvedilol 6.25 MG TAB PO SCH ×3 (08:21→20:43)
[2017-12-16] MEDS: Digoxin 0.125 MG TAB PO SCH (08:21)
[2017-12-16] MEDS: traMADol HCl 50 MG TAB PO PRN ×2 (16:50→23:29)
--- NOTE | 2017-12-16 17:03 | PDOC.CTH ---
Cardiology Progress Note - Subjective He is breathing comfortably today. His breathing is back to baseline. - Objective Vital Signs Temp Pulse Resp BP BP Pulse Ox 12/16/17 15:12 97.7 F 99 17 115/60 98 12/16/17 11:38 97.6 F 90 17 116/57 L 94 L 12/16/17 11:30 89 14 96 12/16/17 08:15 98.1 F 109 H 17 158/75 H 94 L 12/16/17 08:00 98.1 F 109 H 17 12/16/17 06:19 93 16 95 12/16/17 06:18 93 16 95 Weight 237 lb 1.6 oz 12/15/17 12/16/17 12/17/17 06:59 06:59 06:59 Intake Total 840 765 Output Total 3100 4075 Balance -2260 -3310 - Physical Examination General/Neuro: alert & oriented x3, NAD Neck: no JVD present Lungs: unlabored respirations Heart: other: (Irreg) Abdomen: NT/ND Extremities: + edema B (trace) - Telemetry Telemetry Rhythm: Afib HR 90's - Labs Result Diagrams: 12/16/17 04:03 12/16/17 04:03 Troponin/CKMB CK-MB (CK-2) 1.0 ng/mL (0-6.6) 12/11/17 23:15 Troponin I Less than 0.010 ng/mL (< 0.028) 12/12/17 04:55 - Assessment/Plan 1. Afib RVR 2. Acute on chronic combined heart failure. 3. Anemia, 4. Chronic LV systolic dysfunction, EF at 40-45% thought to be non ischemic from a normal MPI. PLAN: - Will switch to diltiazem PO. - Continue IV diuresis.
[2017-12-16] MEDS: Insulin Regular 300 UNITS/3 ML VIAL SC PRN (17:56)
--- NOTE | 2017-12-16 20:12 | PRG ---
DATE OF SERVICE: 12/16/2017 SUBJECTIVE: Keaton Gipson continues to diurese. He is approximately 11 liters negative on fluid luiz nce. OBJECTIVE: GENERAL: He is in no distress. VITAL SIGNS: He is afebrile, heart rate 88, respiratory rate 16, oximetry 95 on room air, blood pres sure 115/60. LUNGS: He is not wheezing today. HEART: Regular rhythm. ABDOMEN: Soft. LABORATORY DATA: Hemoglobin yesterday was 7.7. There is no lab today. Sodium 136, potassium 3.6, c hloride 100, bicarbonate 29, BUN 20, creatinine 0.92, glucose 99. IMPRESSION: 1. Congestive heart failure. 2. ? chronic obstructive pulmonary disease. We will have to do pulmonary function tests once he is euvolemic. 3. Atrial fibrillation. 4. Gastritis shown on EGD. 5. Gastrointestinal blood loss with anticoagulation. 6. History of testicular cancer. 7. Hypertension. 8. Lipid disorder. PLAN: Continue nebulized treatments. Continue physical therapy. I have encouraged him try to walk on his own as long as he feel stable on his feet, so that when he does get discharged, he will be sta ble since he is a long way from our care (he lives in [place]). He appears to be improving and is tutu erating aggressive diuresis.
[2017-12-16] MEDS: Diltiazem HCl SR 90 mg Capsule PO SCH (20:43)
[2017-12-17 04:25] LABS: #Eosinphils 0.7 thou/uL (0.0-0.7); #Lymphocytes 1.7 thou/uL (1.20-3.40); #Monocytes 1.7 thou/uL (0.11-0.59); #Neutrophils 10.6 thou/uL (1.40-6.50); %Basophils 0.3 % (0.0-1.0); %Eosinophils 4.6 % (0.0-10.0); %Lymphocytes 11.5 % (21.0-51.0); %Monocytes 11.2 % (0.0-10.0); %Neutrophils 72.4 % (42.0-75.0); Hemoglobin 7.6 g/dL (14.0-18.0); Mean Corpuscular HGB CONC 31.2 g/dL (32.0-36.0); Mean Corpuscular Hemoglobin 24.5 pg (27.0-31.0); Mean Corpuscular Volume 78.5 fl (80.0-94.0); Platelet Count 406 thou/uL (130-400); RBC Distribution Width 20.4 % (11.5-14.5); Red Blood Cell (RBC) Count 3.08 mill/uL (4.70-6.10); White Blood Cell (WBC) Count 14.7 thou/uL (4.8-10.8)
[2017-12-17 04:47] LABS: Anion Gap 15 mmol/L (10-20); BUN (Urea Nitrogen) 19 mg/dL (8.4-25.7); Calc. Creatinine Clearance 107 mL/min (70-130); Calcium 8.9 mg/dL (7.8-10.44); Carbon Dioxide 27 mmol/L (23-31); Chloride 100 mmol/L (98-107); Estimated GFR-MDRD 69; Glucose 107 mg/dL (80-115); Potassium 3.9 mmol/L (3.5-5.1); Sodium 138 mmol/L (136-145)
[2017-12-17] MEDS: Furosemide 40 MG/4 ML VIAL SLOW IVP SCH (05:11)
[2017-12-17] MEDS: Ferrous Sulfate 325 MG TAB PO SCH ×2 (09:51→18:34)
[2017-12-17] MEDS: Diltiazem HCl SR 90 mg Capsule PO SCH ×2 (09:51→21:57)
[2017-12-17] MEDS: Digoxin 0.125 MG TAB PO SCH (09:51)
[2017-12-17] MEDS: Carvedilol 6.25 MG TAB PO SCH ×3 (09:51→20:25)
[2017-12-17] MEDS: Atorvastatin Calcium 10 MG TAB PO SCH (09:51)
[2017-12-17] MEDS: Arformoterol 15 MCG/2 ML NEB NEB SCH ×2 (10:18→19:07)
--- NOTE | 2017-12-17 11:49 | PRG ---
DATE OF SERVICE: 12/17/2017 PRIMARY CARE PHYSICIAN: Dr. Reid Cruz SUBJECTIVE: The patient denies complaints, denies chest pain, shortness of breath. He is sitting in bed comfortably, not requiring oxygen at this time. States that he is ambulating in the room with his family. Denies nausea, vomiting, or abdominal pain. Feels like he is close to his baseline, but continues to feel weak. Denies shortness of breath with ambulation. OBJECTIVE: VITAL SIGNS: Temperature 97.4, pulse of 86, respirations 12, pulse ox 98% on room air, blood pressure 121/60. Ins and outs, he has lost another 1500 mL of fluid since yesterday. Weight today is 237, weight two days ago was 245. GENERAL: He is awake and alert, in no acute distress. Speech is clear. NECK: Supple. HEART: Irregularly irregular. LUNGS: Have decreased breath sounds at the bases, but there were no wheeze, rales or rhonchi. ABDOMEN: Obese. EXTREMITIES: With 2+ edema and still tight in his lower extremities. Chronic skin changes in bilateral lower extremities. LABORATORY DATA AND IMAGING DATA: White blood cell count 14.7 thousand, hemoglobin and hematocrit 7.6 and 24.2, yesterday it was 7.3 and 24.1, platelets of 406. Sodium 138, potassium 3.9, chloride 100, CO2 27, BUN and creatinine 19 and 1.09 with GFR of 69, serum glucose of 107. Accu-Cheks 116, 131, and 84. Echocardiogram from 12/15/2017 revealed EF of 40%-45%. ASSESSMENT AND PLAN: This is a 62-year-old gentleman admitted for congestive heart failure exacerbation, possible chronic obstructive pulmonary disease and anemia. 1. Anemia. He is postoperative day #3 from esophagogastroduodenoscopy showing mild gastritis. Continuing aspirin and holding on any anticoagulation at this time. 2. Acute on chronic congestive heart failure with systolic and diastolic dysfunction. We will continue diuresis per Cardiology. 3. Chronic atrial fibrillation is rate controlled on calcium channel blockers. He has been able to switch to oral diltiazem. 4. Possible chronic obstructive pulmonary disease. Further plan per Dr. Salcido. There is a plan for a pulmonary function test as an outpatient. 5. Recent gastrointestinal bleed secondary to Xarelto and aspirin. Continue to hold at this time. May be I will start back on aspirin when okay with GI and continue proton pump inhibitor and monitor hemoglobin and hematocrit closely. 6. Hypertension is stable. 7. Deconditioning. We will start walking program to try to ambulate him more hopefully to be able to discharge home in the next day or two. MARIA EUGENIA
[2017-12-17] MEDS: traMADol HCl 50 MG TAB PO PRN (13:05)
[2017-12-17] MEDS ORDERED: Furosemide 40 MG/4 ML VIAL SLOW IVP SCH (14:00)
--- NOTE | 2017-12-17 15:57 | PDOC.CTH ---
Cardiology Progress Note - Objective Vital Signs Temp Pulse Resp BP BP Pulse Ox 12/17/17 15:15 114/59 L 12/17/17 13:50 74 16 12/17/17 11:55 96 20 113/60 97 12/17/17 10:18 86 12 12/17/17 10:14 98 12/17/17 10:13 86 12 12/17/17 09:51 77 121/60 12/17/17 07:15 97.4 F L 74 16 121/60 98 Weight 237 lb 9.6 oz 12/16/17 12/17/17 12/18/17 06:59 06:59 06:59 Intake Total 765 1690 Output Total 4075 3170 Balance -3310 -1480 - Physical Examination General/Neuro: alert & oriented x3, NAD Neck: no JVD present Lungs: unlabored respirations Heart: other: (irreg) Abdomen: NT/ND Extremities: other: (no edema) - Telemetry Telemetry Rhythm: afib HR 70's - Labs Result Diagrams: 12/17/17 03:46 12/17/17 03:46 Troponin/CKMB CK-MB (CK-2) 1.0 ng/mL (0-6.6) 12/11/17 23:15 Troponin I Less than 0.010 ng/mL (< 0.028) 12/12/17 04:55 - Assessment/Plan 1. Afib, rate controlled now 2. Acute on chronic combined heart failure. improved 3. Anemia. 4. Chronic LV systolic dysfunction, EF at 40-45% thought to be non ischemic from a normal MPI. PLAN: - Continue PO diltiazem. - Switch lasix to PO. - No anticoagulation due to recent GI bleeding and anemia.
[2017-12-17] MEDS ORDERED: Carvedilol 25 MG TAB PO SCH (18:30)
[2017-12-17] MEDS: Insulin Regular 300 UNITS/3 ML VIAL SC PRN (18:35)
--- NOTE | 2017-12-17 18:36 | PRG ---
DATE OF SERVICE: 12/17/2017 SUBJECTIVE: Keaton Gipson is in no distress. He has no complaints. His strength is excellent. He s till has about 1+ pretibial edema. OBJECTIVE: VITAL SIGNS: He is afebrile, heart rate 67, blood pressure 114/59, respiratory rate is 20, oximetry is 100% on room air. Intake and output is negative 1480. LUNGS: Clear. CARDIOVASCULAR: Regular rhythm, no S3. ABDOMEN: Soft and nontender. EXTREMITIES: Without clubbing, cyanosis, or edema. LABORATORY DATA: White count is 14.7, hemoglobin 7.6, platelets 406,000. Electrolytes are normal. IMPRESSION: 1. Congestive heart failure. 2. ? chronic obstructive pulmonary disease versus asthma while he was smoking. 3. Atrial fibrillation. 4. Gastritis on EGD. 5. Blood loss anemia. 6. History of testicular cancer. 7. Hypertension. 8. Lipid disorder. PLAN: Continue nebulized treatments, increase his physical therapy and ambulatory time. I recommend that we remove his Moreno, so that we do not have this as an issue prior to discharge. In my opinion, he is medically stable for discharge.
[2017-12-17] MEDS ORDERED: Lisinopril 10 MG TAB PO SCH (21:00)
[2017-12-18 04:19] LABS: Hemoglobin 7.5 g/dL (14.0-18.0)
[2017-12-18 04:27] LABS: Anion Gap 10 mmol/L (10-20); BUN (Urea Nitrogen) 19 mg/dL (8.4-25.7); Calc. Creatinine Clearance 114 mL/min (70-130); Calcium 8.7 mg/dL (7.8-10.44); Carbon Dioxide 30 mmol/L (23-31); Chloride 101 mmol/L (98-107); Estimated GFR-MDRD 74; Glucose 122 mg/dL (80-115); Potassium 3.7 mmol/L (3.5-5.1); Sodium 137 mmol/L (136-145)
[2017-12-18] MEDS: traMADol HCl 50 MG TAB PO PRN (05:08)
[2017-12-18] MEDS: Arformoterol 15 MCG/2 ML NEB NEB SCH (06:44)
[2017-12-18 08:19] VITALS: BP 125/84; TEMP 97.5
[2017-12-18] MEDS: Ferrous Sulfate 325 MG TAB PO SCH (08:24)
[2017-12-18] MEDS: Diltiazem HCl SR 90 mg Capsule PO SCH (08:24)
[2017-12-18] MEDS: Atorvastatin Calcium 10 MG TAB PO SCH (08:25)
[2017-12-18] MEDS: Carvedilol 6.25 MG TAB PO SCH (08:25)
[2017-12-18] MEDS: Digoxin 0.125 MG TAB PO SCH (08:25)
[2017-12-18] MEDS ORDERED: Carvedilol 25 MG TAB PO SCH (09:00)
[2017-12-18] MEDS ORDERED: Furosemide 40 MG TAB PO SCH (09:00)
--- NOTE | 2017-12-18 09:47 | DIS ---
DATE OF ADMISSION: 12/12/2017 DATE OF DISCHARGE: 12/18/2017 PRIMARY CARE PHYSICIAN: Dr. Reid Cruz. ADMISSION DIAGNOSES: 1. Severe anemia and gastrointestinal bleed. 2. Acute on chronic congestive heart failure. 3. Chronic atrial fibrillation. 4. Chronic obstructive pulmonary disease exacerbation. 5. History of peptic ulcer disease. DISCHARGE DIAGNOSES: 1. Anemia, improved. 2. Gastrointestinal bleed, resolved. 3. Rate controlled atrial fibrillation. 4. Acute on chronic combined heart failure. 5. Chronic LV systolic dysfunction. 6. Rule out chronic obstructive pulmonary disease, rule out sleep apnea. 7. Morbid obesity. 8. Deconditioning. CONSULTATIONS: Dr. Salcido for Pulmonary, Dr. Herring for Cardiology and Dr. Strange for Gastroenterology. PROCEDURES: Telemetry monitoring, transfusion 1 unit packed red blood cells, EGD, echocardiogram, pu lmonary function test. HOSPITAL COURSE: This is a 62-year-old male patient of Dr. Cruz's who is new to his practice who p resented to his office with complaints of increased weakness and shortness of breath. He presented t o the emergency department on the day of admission with symptoms worsening. Of note, he was recently hospitalized at [facility] 2 weeks prior to this admission for 5 days for a GI bleed. H is anticoagulation was discontinued, which included aspirin and Xarelto. He was seen by Dr. Loly Esteban for Cardiology and Pulmonary evaluation as well as GI. Dr. Strange performed an EGD on 0 12/14/2017, which revealed erosive gastritis, but no active bleeding and no ulcerations at that time. They recommended continuing to hold off anticoagulation, continue proton pump inhibition and follow his hemoglobin and hematocrit, watching for any more active bleeding. Symptoms continued to improve during his hospitalization. Pulmonary function test was performed at bedside revealed moderately sev ere restrictive ventilatory impairment. He required increase diuresis due to his heart failure. He is able to wean off oxygen and was ambulating in the halls well prior to discharge and prepared for d ischarge on the day of discharge. DISCHARGE PHYSICAL EXAMINATION: VITAL SIGNS: Temperature 97.5, pulse of 81 and irregular, respirations 12-17, blood pressure 125/84, pulse ox is 99% on room air. Weight 237. On admission, he was 255. GENERAL: He is awake and alert, in no acute distress. Speech is clear. NECK: Supple, no JVD, adenopathy or bruits. HEART: Irregular, irregular. LUNGS: Clear bilaterally. ABDOMEN: Obese, soft, nontender, nondistended. No hepatosplenomegaly. EXTREMITIES: 1+ edema bilaterally. DISCHARGE LABORATORY DATA: Hemoglobin and hematocrit are 7.5 and 23.8, it was 6.4 and 20.9 on admiss ion. Sodium 137, potassium 3.7, chloride 101, CO2 of 30, BUN and creatinine are 19 and 1.02 with a G FR of 72. Serum glucose of 122. Blood cultures are negative. Urine cultures were negative. DISCHARGE MEDICATIONS: Include Tylenol p.r.n., DuoNeb p.r.n., Brovana 15 mcg b.i.d., Lipitor 10 mg d aily, Coreg 6.25 mg b.i.d., digoxin 0.125 mg daily, diltiazem 90 mg b.i.d., ferrous sulfate 325 mg b. i.d., Lasix 40 mg b.i.d., Protonix 40 mg b.i.d. FOLLOWUP INSTRUCTIONS: Patient to follow up with Dr. Cruz in 3 days. He has a followup appointmen t with his hand inspector in [place] next week as well. I will continue to follow his hemoglobin and h ematocrit. Hopefully, we will able to start back on anticoagulation due to his chronic atrial fibril lation once his GI issues have resolved.
--- NOTE | 2018-01-20 13:59 | EKG ---
Test Reason : Blood Pressure : / mmHG Vent. Rate : 115 BPM Atrial Rate : 141 BPM P-R Int : 000 ms QRS Dur : 082 ms QT Int : 324 ms P-R-T Axes : 000 040 052 degrees QTc Int : 448 ms Atrial fibrillation with rapid ventricular response Abnormal ECG Confirmed by DELFINA SAL, HONORIO ([id number]), editor city MARIJA CURRY ([id number]) on 01/20/2018 1:59:08 PM Referred By: Confirmed By:HONORIO MATHIS MD
== END 2017-12-18 11:06 | disposition home or self-care (01) | DRG 811 ==
LOC: ERS 22:23 → IMCU/EMU 12-12 01:36 → 2NO 12-15 13:04
PROVIDERS: ADMIT Family Medicine; ATTEND Family Medicine
PROC: 30233N1 Transfusion of Nonautologous Red Blood Cells into Peripheral Vein, Percutaneous Approach (ICD-10-PCS; principal; 2017-12-12)
PROC: 0DJ08ZZ Inspection of Upper Intestinal Tract, Via Natural or Artificial Opening Endoscopic (ICD-10-PCS; 2017-12-14)
DX: D64.9 Anemia, unspecified (principal); I50.23 Acute on chronic systolic (congestive) heart failure; K92.2 Gastrointestinal hemorrhage, unspecified; E66.01 Morbid (severe) obesity due to excess calories; R53.1 Weakness; I48.2 Chronic atrial fibrillation; E78.5 Hyperlipidemia, unspecified; J44.9 Chronic obstructive pulmonary disease, unspecified; I11.0 Hypertensive heart disease with heart failure; Z85.47 Personal history of malignant neoplasm of testis; Z90.79 Acquired absence of other genital organ(s); Z79.01 Long term (current) use of anticoagulants; Z87.891 Personal history of nicotine dependence; Z88.1 Allergy status to other antibiotic agents; Z79.82 Long term (current) use of aspirin; Z88.0 Allergy status to penicillin; Z68.32 Body mass index [BMI] 32.0-32.9, adult
CPT/HCPCS: 36415; 36416; 36430; 71045; 80048; 80053; 80061; 80162; 81003; 81015; 82553; 82805; 83605; 83690; 83880; 84484; 85014; 85018; 85025; 86850; 86900; 86901; 87040; 87086; 93005; 93306; 93798; 94010; 94640; 94660; 94760; 96365; 96367; 96375; J1100; J1815; J1940; J1956; J2704; J3010; J3475; J7050; J7611; J7620; P9016